=== PATIENT | male | born 1940 | race Caucasian/White ===

== ENCOUNTER → 2017-09-04 | Outpatient (CLI) | payer MEDICARE ==
[~2017-09-04] MED LIST: ASPIR 8181 MG PO; ASPIRIN325 MG PO; ATENOLOL PO; CITRACIL PO; CRESTOR PO; CRESTOR20 MG PO; D3 PO; METOPROLOL TART25 MG PO; MULTIVITAMIN PO; MULTIVITAMINS1 EAC7 PO; NIACIN1000 MG PO; OMEPRAZOLE PO; OMEPRAZOLE40 MG PO; VITAMIN D3 PO; VITAMIN D3400 UNIT PO
--- NOTE | 2017-09-06 09:48 | Diagnostic Imaging Report ---
Right knee MRI without contrast. History: Knee pain. Swelling. Decreased range of motion. Pain not responding to conservative management. Meniscus tear. Comparison: None. Technique: Multiplanar multi-sequence MRI of the knee without contrast. Findings: Medial compartment: There is a complex tear involving the posterior horn and body segments of the medial meniscus with a radial component at the posterior root. The meniscus is subluxed to the periphery. There is a subchondral microtrabecular fracture at the periphery of the medial tibial plateau with bone marrow edema best seen on coronal series 5 image 11. The medial compartmental articular cartilage surfaces are thinned with regions of fraying and fissuring. Medial collateral ligament complex is intact. Lateral compartment: No meniscal tear or cartilage abnormality. The LCL complex is normal. Intercondylar notch: The ACL and PCL are intact. Patellofemoral compartment: No chondromalacia or patellar dislocation. Extensor mechanism: The quadriceps and patellar tendons are normal. Other findings: There is a joint effusion and synovitis. There is no subluxation or avascular necrosis. 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 IMPRESSION: Complex tear involving the posterior horn and body segments of the medial meniscus with a radial component at the posterior root. The meniscus is subluxed to the periphery. There is a subchondral microtrabecular fracture at the periphery of the medial tibial plateau with bone marrow edema. The medial compartmental articular cartilage surfaces are thinned with regions of fraying and fissuring. Joint effusion and synovitis. There is no subluxation or avascular necrosis. 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 Signed by: Dr. Jose E Serrano M.D. on 09/06/2017 9:44 AM
== END ==
LOC: MRI 07:37
PROVIDERS: ATTEND Family Medicine
DX: M23.303 Other meniscus derangements, unspecified medial meniscus, right knee (principal)

== ENCOUNTER → 2017-09-13 | Day surgery (SDC) | payer MEDICARE ==
[2017-09-07 09:21] LABS: BASOPHILS # (AUTO) 0.1 (0.0-0.1); BASOPHILS % 0.8 % (0.0-1.0); EOSINOPHILS # (AUTO) 0.2 (0.0-0.4); EOSINOPHILS % 2.8 % (0.0-6.0); HEMATOCRIT 44.2 % (38.2-49.6); LYMPHOCYTES # (AUTO) 1.7 (1.0-3.2); LYMPHOCYTES % 27.2 % (18.0-39.1); MEAN CORPUSCULAR HEMOGLOBIN 30.9 pg (28-32); MEAN CORPUSCULAR HGB CONC 33.9 g/dL (31-35); MEAN CORPUSCULAR VOLUME 90.9 fL (81-99); MONOCYTES # (AUTO) 0.6 (0.2-0.8); NEUTROPHILS # (AUTO) 3.7 (2.1-6.9); PLATELET COUNT 207 x10e3/uL (140-360); RED BLOOD COUNT 4.86 x10e6/uL (4.3-5.7); RED CELL DISTRIBUTION WIDTH 12.2 % (11.7-14.4)
[~2017-09-13] MED LIST changes: +FENTANYL CITRATE/PF 100MCG/2 ML INJ ONE; +MIDAZOLAM HCL 2 MG/2 ML VIAL ONE; +PROPOFOL IV EMULSION 10 MG/ML 50 ML VIAL ONE
--- NOTE | 2017-09-13 13:04 | Operative Report ---
DATE OF PROCEDURE: September 13, 2017 REFERRING PHYSICIAN: Dr. Noel Muhammad PROCEDURES PERFORMED 1. Esophagogastroduodenoscopy with esophageal dilatation. 2. Colonoscopy with polypectomy. INDICATIONS FOR EGD: Dysphagia. INDICATIONS FOR COLONOSCOPY: Colorectal cancer screening. Personal history of colon polyps. MEDICATION: Patient was done under MAC. Please see anesthesiologist's note. PROCEDURE: With the patient in the left lateral decubitus position, the flexible fiberoptic Olympus gastroscope was introduced into the esophagus under direct visualization without any difficulty. There was some patchy erythema noted in the distal esophagus. There was a mild stricture noted at the GE junction. It was dilated to size 52-[place] Velez. The scope was then advanced with ease into the stomach. The mucosa overlying the antrum and the body revealed some patchy erythema. The pylorus was of normal contour and shape. It was intubated with ease, and the scope was advanced all the way to the 2nd portion of the duodenum. The scope was then withdrawn slowly. Mucosa overlying the proximal 2nd portion and the duodenal bulb appeared to be within normal limits. The scope was then withdrawn back into the stomach and retroflexed. The mucosa overlying the fundus and the cardia appeared to be within normal limits. The scope was then straightened out. The stomach was decompressed. Scope was subsequently withdrawn. Patient tolerated the procedure well. IMPRESSION 1. Mild distal esophagitis. 2. Esophageal stricture dilated to size 52-[place] Velez. 3. Gastritis, mild. PLAN: Plan follow up histology. Continue omeprazole 40 mg 1 p.o. q.a.m. a.c. The patient was then turned around. After adequate lubrication of the anal canal, a flexible fiberoptic Olympus colonoscope was inserted into the rectum with ease and advanced all the way to the cecum. The mucosa overlying the cecum appeared to be within normal limits. One polyp was snared from the ascending colon. The rest of the ascending, transverse and descending appeared to be within normal limits. Some diverticulosis was noted in the sigmoid colon. The rectum appeared to be within normal limits. The scope was then retroflexed into the distal rectum, and small internal hemorrhoids were noted, none of which was actively bleeding. The scope was then straightened out. The rectosigmoid area as well as the distal rectal area were decompressed. Scope was subsequently withdrawn. Patient tolerated the procedure well. IMPRESSION 1. Ascending colon polyp, snared. 2. Diverticulosis. 3. Internal hemorrhoids, none actively bleeding. PLAN: Follow up histology. Initiate high-fiber, low-fat diet. Initiate high-fiber supplement. Patient will need a followup colonoscopy in 3 years. Job#: [id number] cc:JOHNNY MUHAMMAD DO
== END | disposition home or self-care (01) ==
LOC: ENDO 07:33
PROVIDERS: ATTEND Internal Medicine Gastroenterology
DX: K22.2 Esophageal obstruction (principal); K63.5 Polyp of colon; K29.70 Gastritis, unspecified, without bleeding; K57.30 Diverticulosis of large intestine without perforation or abscess without bleeding; K21.9 Gastro-esophageal reflux disease without esophagitis; K64.8 Other hemorrhoids; K20.9 Esophagitis, unspecified; I10 Essential (primary) hypertension; Z01.810 Encounter for preprocedural cardiovascular examination; Z01.812 Encounter for preprocedural laboratory examination; Z79.82 Long term (current) use of aspirin; Z68.26 Body mass index [BMI] 26.0-26.9, adult; Z85.46 Personal history of malignant neoplasm of prostate; Z80.0 Family history of malignant neoplasm of digestive organs
CPT/HCPCS: 36415; 43235; 43450; 45385; 85025; 88305; 93005; J2250

== ENCOUNTER → 2018-05-13 | Outpatient (CLI) | payer MEDICARE ==
[~2018-05-13] MED LIST changes: -FENTANYL CITRATE/PF 100MCG/2 ML INJ ONE; -MIDAZOLAM HCL 2 MG/2 ML VIAL ONE; -PROPOFOL IV EMULSION 10 MG/ML 50 ML VIAL ONE
--- NOTE | 2018-05-13 17:00 | Diagnostic Imaging Report ---
TECHNIQUE: Magnetic resonance imaging of the LEFT HIP was performed WITHOUT injected contrast. HISTORY: Degenerative tear of acetabular labrum COMPARISON: None available. FINDINGS: Bone: The bone marrow signal is heterogeneous, compatible with red marrow conversion, no specific evidence of a focal bone marrow replacing abnormality. No osteonecrosis or acute fracture. Femoroacetabular Joint: Acetabular labrum: Diffuse complex tearing and attenuation, most notably of the anterosuperior and superior labrum. Articular Cartilage: High-grade to full-thickness erosions and fibrillation of the weightbearing cartilage. Muscle and tendons: Mild bilateral intrasubstance degeneration of the proximal hamstring tendons. Soft tissues: Otherwise, unremarkable. Other: Incidentally, on the large [id number] images there appears to be similar right hip weightbearing cartilage erosion and degenerative tearing of the labrum. IMPRESSION: 1. 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 2. Incidentally, similar degenerative changes of the right hip. 3. Mild bilateral proximal hamstring tendinosis. Signed by: Dr. Fernando De La O D.O., M.M.M. on 05/13/2018 4:56 PM
== END ==
LOC: MRI 05-11 16:11
PROVIDERS: ATTEND Family Medicine
DX: M16.12 Unilateral primary osteoarthritis, left hip (principal)

== ENCOUNTER 2018-06-11 05:20 | Emergency (ER) | payer MEDICARE ==
[~2018-06-11] VITALS: Ht 172.7 cm; Wt 83.9 kg
[2018-06-11] MEDS ORDERED: KETOROLAC TROMETHAMINE 30 MG/ML VIAL IV STA ×2 (05:26→05:54)
[2018-06-11] MEDS ORDERED: LOSARTAN POTASS25 MG PO (05:46)
[2018-06-11] MEDS ORDERED: NORCO 5-325 TA1 EACH PO (05:46)
[2018-06-11 05:52] LABS: BASOPHILS % 0.2 % (0.0-1.0); EOSINOPHILS % 0.3 % (0.0-6.0); HEMATOCRIT 43.2 % (38.2-49.6); HEMOGLOBIN 14.9 g/dL (14.0-18.0); LYMPHOCYTES # (AUTO) 1.5 (1.0-3.2); LYMPHOCYTES % 14.7 % (18.0-39.1); MEAN CORPUSCULAR HEMOGLOBIN 30.7 pg (28-32); MEAN CORPUSCULAR HGB CONC 34.5 g/dL (31-35); MEAN CORPUSCULAR VOLUME 89.1 fL (81-99); MONOCYTES # (AUTO) 0.7 (0.2-0.8); MONOCYTES % 6.8 % (4.4-11.3); NEUTROPHILS % 77.6 % (38.7-80.0); PLATELET COUNT 216 x10e3/uL (140-360); RED BLOOD COUNT 4.85 x10e6/uL (4.3-5.7); RED CELL DISTRIBUTION WIDTH 12.5 % (11.7-14.4)
[2018-06-11] MEDS ORDERED: ONDANSETRON HCL INJ 2 MG/ML VIAL IV STA (05:54)
[2018-06-11 06:12] LABS: ALANINE AMINOTRANSFERASE 22 IU/L (0-55); ALBUMIN 4.2 g/dL (3.5-5.0); ALBUMIN/GLOBULIN RATIO 1.4 (0.8-2.0); ALKALINE PHOSPHATASE 72 IU/L (40-150); ANION GAP 16.9 mmol/L (8-16); BLOOD UREA NITROGEN 18 mg/dL (7-26); BUN/CREATININE RATIO 17 (6-25); CALCIUM 9.4 mg/dL (8.4-10.2); CARBON DIOXIDE 22 mmol/L (22-29); CHLORIDE 107 mmol/L (98-107); CREATININE, SERUM 1.07 mg/dL (0.72-1.25); EST GLOMERULAR FILTRATION RATE > 60 ML/MIN (60-); GLUCOSE 121 mg/dL (74-118); POTASSIUM 3.9 mmol/L (3.5-5.1); SODIUM 142 mmol/L (136-145)
[2018-06-11 06:26] LABS: CLARITY,URINE HAZY (CLEAR); COLOR,URINE YELLOW (YELLOW)
[2018-06-11 06:27] LABS: BILIRUBIN,URINE NEGATIVE (NEGATIVE); KETONES,URINE NEGATIVE (NEGATIVE); LEUKOCYTE ESTERASE ,URINE NEGATIVE (NEGATIVE); NITRITE,URINE NEGATIVE (NEGATIVE); PROTEIN,URINE DIPSTICK TRACE (NEGATIVE); URINE UROBILINOGEN 0.2 mg/dL (0.2 - 1)
[2018-06-11 06:30] LABS: RBC,URINE 21-50 /HPF (0-5); WBC,URINE (MAN) 0-5 /HPF (0-5)
[2018-06-11 06:31] LABS: BACTERIA,URINE FEW /HPF; EPITHELIAL CELLS,URINE FEW /LPF
--- NOTE | 2018-06-11 07:05 | Diagnostic Imaging Report ---
EXAM: CT ABDOMEN AND PELVIS without IV CONTRAST INDICATION: Hematuria, lower pelvic pain COMPARISON: None TECHNIQUE: The abdomen and pelvis were scanned using a multidetector helical scanner. Coronal and sagittal reformations were obtained. Dose modulation, iterative reconstruction, and/or weight based adjustment of the mA/kV was utilized to reduce the radiation dose to as low as reasonably achievable. Renal stone protocol performed. IV Contrast: None Oral Contrast: None CTDIvol has been reviewed. It is below the limits set by the Radiation Protocol Committee (RPC). FINDINGS: LOWER THORAX: No consolidations LIVER: Multiple liver cysts. BILIARY: Normal gallbladder. No ductal dilation. SPLEEN: No masses PANCREAS: No masses ADRENALS: No nodules RIGHT KIDNEY: No nephroureterolithiasis or hydronephrosis. LEFT KIDNEY: There is a 4 mm stone at the left ureterovesicular junction resulting in mild to moderate hydroureteronephrosis and perinephric fat stranding. Punctate nonobstructing stone in the superior pole of the left kidney. Simple cyst measuring 5 cm superior pole left kidney. GI TRACT: No wall thickening or obstruction. VESSELS: Unremarkable PERITONEUM/RETROPERITONEUM: No free air or fluid LYMPH NODES: No lymphadenopathy REPRODUCTIVE ORGANS: Prostate not visualized BLADDER: Normal SOFT TISSUES: Bilaterally inguinal hernias. BONES: Nonspecific 1 cm sclerotic density in the L3 vertebral body. IMPRESSION: 1. There is a 4 mm stone at the left ureterovesicular junction resulting in mild to moderate hydroureteronephrosis and perinephric fat stranding. 2. Nonspecific 1 cm sclerotic density in the L3 vertebral body. Signed by: Dr. Rula Gunderson M.D. on 06/11/2018 7:02 AM
[2018-06-11 07:14] VITALS: BP 131/78
== END 2018-06-11 07:32 | disposition home or self-care (01) ==
LOC: ER 05:20
DX: R10.32 Left lower quadrant pain (principal); R11.0 Nausea; N20.1 Calculus of ureter; I10 Essential (primary) hypertension; E78.00 Pure hypercholesterolemia, unspecified
CPT/HCPCS: 36415; 74176; 80053; 81001; 85025; 96374; 96375; 99284; J1885; J2405

== ENCOUNTER → 2020-06-04 | Day surgery (SDC) | payer MEDICARE, OTHER ==
[2020-05-30 15:39] LABS: BASOPHILS % 0.4 % (0.0-1.0); EOSINOPHILS # (AUTO) 0.2 (0.0-0.4); EOSINOPHILS % 2.3 % (0.0-6.0); HEMATOCRIT 41.8 % (38.2-49.6); HEMOGLOBIN 13.6 g/dL (14.0-18.0); LYMPHOCYTES # (AUTO) 1.6 (1.0-3.2); LYMPHOCYTES % 23.5 % (18.0-39.1); MEAN CORPUSCULAR HEMOGLOBIN 29.4 pg (28-32); MEAN CORPUSCULAR HGB CONC 32.5 g/dL (31-35); MEAN CORPUSCULAR VOLUME 90.5 fL (81-99); MONOCYTES # (AUTO) 0.4 (0.2-0.8); MONOCYTES % 6.2 % (4.4-11.3); NEUTROPHILS # (AUTO) 4.7 (2.1-6.9); NEUTROPHILS % 67.3 % (38.7-80.0); PLATELET COUNT 219 x10e3/uL (140-360); RED BLOOD COUNT 4.62 x10e6/uL (4.3-5.7); RED CELL DISTRIBUTION WIDTH 12.2 % (11.7-14.4)
[~2020-06-04] MED LIST changes: +AMLODIPINE BESYL5 MG PO; +ASPIRIN81 MG PO; +CENTRUM SILVER1 EAC6 PO; +FENTANYL CITRATE/PF 100MCG/2 ML INJ ONE; +HYOSCYAMINE 0.125 MG TAB ONE; +LIDOCAINE HCL 2% LOCAL INJ 5 ML SDV VIAL INJ ONE; +LOSARTAN POTASS25 MG PO; +MIDAZOLAM HCL 2 MG/2 ML VIAL ONE; +NORCO 5-325 TA1 EACH PO; +OXYBUTYNIN CHLOR5 M1 PO; +PROPOFOL IV EMULSION 10 MG/ML 20 ML VIAL ONE
[2020-06-04 15:25] VITALS: BP 117/69
== END | disposition home or self-care (01) ==
LOC: OR 11:48
PROVIDERS: ATTEND Internal Medicine Gastroenterology
DX: Z12.11 Encounter for screening for malignant neoplasm of colon (principal); K63.5 Polyp of colon; K31.7 Polyp of stomach and duodenum; K20.90 Esophagitis, unspecified without bleeding; K29.70 Gastritis, unspecified, without bleeding; K57.30 Diverticulosis of large intestine without perforation or abscess without bleeding; K64.8 Other hemorrhoids; K22.5 Diverticulum of esophagus, acquired; I10 Essential (primary) hypertension; N20.0 Calculus of kidney; E78.00 Pure hypercholesterolemia, unspecified; R49.9 Unspecified voice and resonance disorder; F41.9 Anxiety disorder, unspecified; Z01.810 Encounter for preprocedural cardiovascular examination; Z01.812 Encounter for preprocedural laboratory examination; Z11.59 Encounter for screening for other viral diseases; Z79.82 Long term (current) use of aspirin; Z85.46 Personal history of malignant neoplasm of prostate; Z80.0 Family history of malignant neoplasm of digestive organs
CPT/HCPCS: 36415; 43239; 45380; 45384; 85025; 93005; J2001; J2250; J2704; J3010; U0002

== ENCOUNTER → 2023-06-17 | Day surgery (SDC) | payer MEDICARE ==
[2023-06-14 08:18] LABS: BASOPHILS # (AUTO) 0.1 (0.0-0.1); EOSINOPHILS # (AUTO) 0.2 (0.0-0.4); EOSINOPHILS % 4.8 % (0.0-6.0); HEMATOCRIT 41.2 % (38.2-49.6); HEMOGLOBIN 14.7 g/dL (14.0-18.0); LYMPHOCYTES # (AUTO) 1.5 (1.0-3.2); LYMPHOCYTES % 29.4 % (18.0-39.1); MEAN CORPUSCULAR HEMOGLOBIN 31.2 pg (28-32); MEAN CORPUSCULAR HGB CONC 35.7 g/dL (31-35); MEAN CORPUSCULAR VOLUME 87.5 fL (81-99); MONOCYTES # (AUTO) 0.6 (0.2-0.8); MONOCYTES % 11.7 % (4.4-11.3); NEUTROPHILS # (AUTO) 2.6 (2.1-6.9); NEUTROPHILS % 52.9 % (38.7-80.0); PLATELET COUNT 181 x10e3/uL (140-360); RED BLOOD COUNT 4.71 x10e6/uL (4.3-5.7); RED CELL DISTRIBUTION WIDTH 11.9 % (11.7-14.4); WHITE BLOOD COUNT 4.96 x10e3/uL (4.8-10.8)
[~2023-06-17] MED LIST changes: +FLONASE ALLERG9.9 ML INH; -HYOSCYAMINE 0.125 MG TAB ONE; +LACTATED RINGER'S 1,000 ML ONE; +METOCLOPRAMIDE HCL 10 MG/2ML VIAL ONE
[2023-06-17 11:03] VITALS: TEMP 97
[2023-06-17 11:23] VITALS: BP 132/85; PULSE 70; RESP 18; O2SAT 98
== END | disposition home or self-care (01) ==
LOC: OR 08:32
PROVIDERS: ATTEND Internal Medicine Gastroenterology
DX: K22.5 Diverticulum of esophagus, acquired (principal); Z12.11 Encounter for screening for malignant neoplasm of colon; K29.50 Unspecified chronic gastritis without bleeding; K21.9 Gastro-esophageal reflux disease without esophagitis; K26.9 Duodenal ulcer, unspecified as acute or chronic, without hemorrhage or perforation; D12.2 Benign neoplasm of ascending colon; D12.4 Benign neoplasm of descending colon; K51.40 Inflammatory polyps of colon without complications; Z80.0 Family history of malignant neoplasm of digestive organs; K57.30 Diverticulosis of large intestine without perforation or abscess without bleeding; K64.8 Other hemorrhoids
CPT/HCPCS: 36415; 43239; 43450; 45385; 85025; 93005; C9113; J2001; J2250; J2704; J2765; J3010; J7121; 45378; 45380

== ENCOUNTER → 2024-04-26 | Outpatient (REF) | payer MEDICARE ==
[~2024-04-26] MED LIST changes: +DIATRIZOATE MEGL/DIATRIZOA SOD 30 ML BTL PO ONE; -FENTANYL CITRATE/PF 100MCG/2 ML INJ ONE; +IOPAMIDOL 370 MG/ML 100 ML INFUS..BTL INJ ONE; -LACTATED RINGER'S 1,000 ML ONE; -LIDOCAINE HCL 2% LOCAL INJ 5 ML SDV VIAL INJ ONE; -METOCLOPRAMIDE HCL 10 MG/2ML VIAL ONE; -MIDAZOLAM HCL 2 MG/2 ML VIAL ONE; -PROPOFOL IV EMULSION 10 MG/ML 20 ML VIAL ONE
[2024-04-26 16:30] LABS: CREATININE, SERUM 1.03 mg/dL (0.72-1.25)
== END ==
LOC: CT 15:34
PROVIDERS: ATTEND Family Medicine
DX: R10.31 Right lower quadrant pain (principal); K59.00 Constipation, unspecified
CPT/HCPCS: 36415; 74177; 82565; 84520; Q9963; Q9967